=== PATIENT | female | born 1935 | race Caucasian/White ===

== ENCOUNTER → 2016-10-26 | Outpatient (CLI) | payer MEDICARE, BC ==
--- NOTE | 2016-10-26 13:54 | MM ---
Reason for exam: clinical finding. Last mammogram was performed 1 year ago. History: Patient is postmenopausal. Cyst aspiration of the right breast, 1966. Excisional biopsy of the right breast. Took estrogen for 5 months beginning at age 70. Physical Findings: Nurse did not find any significant physical abnormalities on exam. MG Diagnostic Mammo w CAD NICKIE Bilateral CC and MLO view(s) were taken. Prior study comparison: October 21, 2015, bilateral MG 3d screening mammo w/cad. September 17, 2014, bilateral MG screening mammo w CAD. There are scattered fibroglandular densities. There is chronic nodularity in the left breast. No significant new findings when compared with previous films. These results were verbally communicated with the patient and result sheet given to the patient on 10/26/16. ASSESSMENT: Benign, BI-RAD 2 RECOMMENDATION: Routine screening mammogram of both breasts in 1 year. Manage patient on a clinical basis.
--- NOTE | 2016-10-26 14:32 | US ---
EXAMINATION TYPE: US thyroid st tissue head/neck DATE OF EXAM: 10/26/2016 COMPARISON: 09/10/2012 CLINICAL HISTORY: E01.0 IODINE DEFICIENCY, E01.0 GOITER. f/u exam , on Synthroid for years GLAND SIZE: Right Lobe: 3.0 x 0.9 x 1.0 cm Overall Parenchyma: homogenous Left Lobe: 3.0 x 0.9 x 1.5 cm Overall Parenchyma: homogeneous Isthmus Thickness: 0.3 cm NODULES RIGHT: # of nodules measured on right: 0 LEFT: # of nodules measured on left: 1 1. 0.3 X 0.3 x 0.3 cm mixed cystic nodule at the mid pole with well-defined margins. This nodule is wider than tall and shows no intranodular vascularity. Prior size: 0.6 x 0.6 x 0.6 cm ISTHMUS: # of nodules measured in the isthmus: 0 Bilateral neck scanned, no evidence of lymphadenopathy. IMPRESSION: Subcentimeter nonspecific left thyroid nodule is smaller in size when compared to the prior study.
== END | disposition home or self-care (01) ==
LOC: RADMAMWWP 12:57
PROVIDERS: ATTEND Internal Medicine
DX: N60.09 Solitary cyst of unspecified breast (principal); E04.1 Nontoxic single thyroid nodule
CPT/HCPCS: 76536; G0204

== ENCOUNTER → 2017-08-01 | Outpatient (CLI) | payer MEDICARE, BC ==
--- NOTE | 2017-08-01 12:43 | XR ---
EXAMINATION TYPE: XR chest 2V DATE OF EXAM: 08/01/2017 COMPARISON: 11/08/2009 HISTORY: Chest pain TECHNIQUE: Frontal and lateral views of the chest are obtained. FINDINGS: There is no focal air space opacity, pleural effusion, or pneumothorax seen. The cardiac silhouette size is within normal limits. The osseous structures are intact. Cholecystectomy clips a re noted within the right upper quadrant. Mild multilevel degenerative changes of the thoracic spine are noted. IMPRESSION: No acute cardiopulmonary process.
== END | disposition home or self-care (01) ==
LOC: RADXRMAIN 11:45
PROVIDERS: ATTEND Family Medicine
DX: R07.9 Chest pain, unspecified (principal)
CPT/HCPCS: 71046

== ENCOUNTER → 2018-02-23 | Outpatient (CLI) | payer MEDICARE, BC ==
--- NOTE | 2018-02-26 10:10 | USB ---
Reason for exam: clinical finding. History: Patient is postmenopausal. Cyst aspiration of the right breast, 1966. Excisional biopsy of the right breast. Took estrogen for 5 months beginning at age 70. Indicated problem(s): pain in the right breast. Physical Findings: Nurse did not find any significant physical abnormalities on exam. US Breast RT Right complete breast ultrasound includes all four quadrants, the retroareolar region and axilla. Finding demonstrates duct ectasia at the posterior nipple. These results were verbally communicated with the patient and result sheet given to the patient on 02/23/18. ASSESSMENT: Benign, BI-RAD 2 RECOMMENDATION: Routine screening mammogram of both breasts. Manage patient on a clinical basis. Patient is due now for routine screening mammogram.
== END | disposition home or self-care (01) ==
LOC: RADUSWWP 14:38
PROVIDERS: ATTEND Family Medicine
DX: N64.4 Mastodynia (principal)

== ENCOUNTER 2019-04-17 07:50 | Day surgery (SDC) | payer MEDICARE, BC ==
[2019-04-16 09:41] VITALS: BMI 30.2
[2019-04-17 08:32] VITALS: RESP 18; TEMP 98
[2019-04-17] MEDS: LACTATED RINGERS 1,000 ML IV SCH ×2 (08:32→08:45)
[2019-04-17 08:35] LABS: Glucose,Whole Blood 111 mg/dL (75-99)
[2019-04-17] MEDS ORDERED: PROPOFOL 10 MG/ML 20 ML VIAL IV ONE (08:46)
--- NOTE | 2019-04-17 09:11 | P.PCN ---
Date of Procedure: 04/17/19 Procedure(s) Performed: BRIEF HISTORY: Patient is a 84-year-old pleasant 8 female scheduled for an elective colonoscopy as a part of evaluation of positive cologuard. PROCEDURE PERFORMED: Colonoscopy and snare polypectomy. PREOPERATIVE DIAGNOSIS: Positive cologuard. IV sedation per Anesthesia. PROCEDURE: After informed consent was obtained, the patient, was brought into the endoscopy unit. IV sedation was administered by Anesthesia under continuous monitoring. Digital rectal examination was normal. Initially the Olympus CF-160 flexible video colonoscope was then inserted in the rectum, gradually advanced into the cecum without any difficulty. Careful examination was performed as the scope was gradually being withdrawn. Ileocecal valve and the appendiceal orifice were visualized and appeared normal. Prep was excellent. In the base of the cecum there was a 5 mm sessile polyp removed by snare polypectomy. In the ascending colon there was a 3 mm and 5 mm sessile polyps removed by snare polypectomy. In the hepatic flexure there was a 1 cm polyp removed by snare polypectomy. In the transverse colon there was a 2 mm and 3 mm sessile polyps removed by snare polypectomy. Rest of the mucosa of descending colon, sigmoid colon, and rectum appeared normal. Retroflexion was performed in the rectum and no lesions were seen. The patient tolerated the procedure well. IMPRESSION: 5 mm cecal polyp status post polypectomy 3 mm and 5 mm ascending colon polyp status post polypectomy 1 cm hepatic flexure polyp serous posterior polypectomy 2 mm and 3 mm transverse colon polyp status post polypectomy Scattered sigmoidal diverticulosis RECOMMENDATIONS: Findings of this examination were discussed with the patient as well as her family. She was advised to follow with the biopsy results.
[2019-04-17 09:35] VITALS: BP 135/65; PULSE 49
== END 2019-04-17 09:56 | disposition home or self-care (01) ==
LOC: ORWHC2ENDO 07:50
PROVIDERS: ATTEND Internal Medicine Gastroenterology
DX: D12.0 Benign neoplasm of cecum (principal); D12.2 Benign neoplasm of ascending colon; D12.3 Benign neoplasm of transverse colon; Z86.010 Personal history of colon polyps; Z79.82 Long term (current) use of aspirin; Z79.899 Other long term (current) drug therapy; E11.9 Type 2 diabetes mellitus without complications; E07.9 Disorder of thyroid, unspecified; I10 Essential (primary) hypertension; E78.5 Hyperlipidemia, unspecified; Z79.890 Hormone replacement therapy
CPT/HCPCS: 88305; 45385; J2704

== ENCOUNTER 2019-11-25 13:49 | Observation (INO) | payer MEDICARE, BC ==
[2019-11-25] MEDS ORDERED: ASPIRIN 81 MG PO STA (14:15)
[2019-11-25] MEDS ORDERED: NITROGLYCERIN OINT 1 INCH/GM PACKET TOPICAL STA (14:15)
--- NOTE | 2019-11-25 14:18 | ED ---
General Adult HPI - General Chief complaint: Chest Pain Stated complaint: Chest Pain Time Seen by Provider: 11/25/19 13:57 Source: patient, family, RN notes reviewed Mode of arrival: wheelchair Limitations: no limitations - History of Present Illness Initial comments: Patient is a pleasant 84-year-old female presenting to the emergency Department with complaints of chest discomfort. Onset of symptoms was this morning. Patient has sharp discomfort left chest. Symptoms are not positional. No worsening symptoms with breaths. No cough. No dyspnea. Symptoms are waxing and waning. Patient took aspirin and symptoms are starting to improve however still occurring. Symptoms usually are short lasting. Discomfort gets as severe as 5/10 now. Previously discomfort was up to 8/10. No nausea or diaphoresis. No radiation. - Related Data Home Medications Medication Instructions Recorded Confirmed Aspirin 81 mg PO DAILY 04/16/19 04/16/19 Atorvastatin [Lipitor] 20 mg PO HS 04/16/19 04/16/19 Isosorbide Mononitrate [Isosorbide 30 mg PO DAILY 04/16/19 04/16/19 Mononitrate ER] Levothyroxine Sodium [Synthroid] 75 mcg PO DAILY 04/16/19 04/16/19 amLODIPine BES/OLMESARTAN MED 1 each PO DAILY 04/16/19 04/16/19 [John 10-40 MG] atenoloL [Tenormin] 25 mg PO BID 04/16/19 04/16/19 Allergies Allergy/AdvReac Type Severity Reaction Status Date / Time No Known Allergies Allergy Verified 11/25/19 13:54 Review of Systems ROS Statement: Those systems with pertinent positive or pertinent negative responses have been documented in the HPI. ROS Other: All systems not noted in ROS Statement are negative. Constitutional: Denies: fever Eyes: Denies: eye pain ENT: Denies: ear pain Respiratory: Denies: cough, dyspnea Cardiovascular: Reports: as per HPI, chest pain Endocrine: Denies: fatigue Gastrointestinal: Denies: abdominal pain, nausea, vomiting Genitourinary: Denies: dysuria Musculoskeletal: Denies: back pain Skin: Denies: rash Neurological: Denies: weakness Past Medical History Past Medical History: Diabetes Mellitus, Hyperlipidemia, Hypertension, Thyroid Disorder Additional Past Medical History / Comment(s): hx. "leaky valve", used to take metformin, recent loose stools & "no control" History of Any Multi-Drug Resistant Organisms: None Reported Past Surgical History: Back Surgery, Bladder Surgery, Breast Surgery, Cholecystectomy, Hysterectomy Additional Past Surgical History / Comment(s): left carotid endarterectomy, benign breast cyst removed, bladder suspension Past Anesthesia/Blood Transfusion Reactions: No Reported Reaction Past Alcohol Use History: None Reported Past Drug Use History: None Reported General Exam Limitations: no limitations General appearance: alert, in no apparent distress Head exam: Present: normocephalic Eye exam: Present: normal appearance Neck exam: Present: normal inspection Respiratory exam: Present: normal lung sounds bilaterally. Absent: chest wall tenderness Cardiovascular Exam: Present: bradycardia, normal heart sounds Expanded Peripheral pulses: 2+: Radial (R), Radial (L), Posterior Tibialis (R), Posterior Tibialis (L), Dorsalis Pedis (R), Dorsalis Pedis (L) GI/Abdominal exam: Present: soft. Absent: tenderness Extremities exam: Present: normal inspection. Absent: pedal edema, calf tenderness Neurological exam: Present: alert Psychiatric exam: Present: normal affect, normal mood Skin exam: Present: normal color Course Vital Signs 11/25/19 11/25/19 13:52 15:48 Temperature 98.0 F Pulse Rate 51 L 48 L Respiratory 18 16 Rate Blood Pressure 156/75 136/69 O2 Sat by Pulse 97 96 Oximetry EKG Findings - EKG Comments: EKG Findings:: Sinus bradycardia 48. First-degree heart block with a NM of 208. QRS 106. QT 476. QTc 425. Normal axis. LVH. No acute ST change. Medical Decision Making - Medical Decision Making Patient reevaluated and resting comfortably in bed. Patient states she is still having symptoms however mild at this time. Patient and family updated on results and plan. Case was discussed in detail with Dr. Fair, who will admit his patient. - Lab Data Result diagrams: 11/25/19 14:20 11/25/19 14:20 Lab Results 11/25/19 11/25/19 11/25/19 Range/Units 14:20 14:20 14:20 WBC 8.2 (3.8-10.6) k/uL RBC 4.42 (3.80-5.40) m/uL Hgb 13.8 (11.4-16.0) gm/dL Hct 40.9 (34.0-46.0) % MCV 92.7 (80.0-100.0) fL MCH 31.3 (25.0-35.0) pg MCHC 33.8 (31.0-37.0) g/dL RDW 13.1 (11.5-15.5) % Plt Count 179 (150-450) k/uL Neutrophils % 54 % Lymphocytes % 35 % Monocytes % 6 % Eosinophils % 2 % Basophils % 1 % Neutrophils # 4.4 (1.3-7.7) k/uL Lymphocytes # 2.9 (1.0-4.8) k/uL Monocytes # 0.5 (0-1.0) k/uL Eosinophils # 0.2 (0-0.7) k/uL Basophils # 0.1 (0-0.2) k/uL PT 10.3 (9.0-12.0) sec INR 1.0 (<1.2) APTT 24.0 (22.0-30.0) sec D-Dimer 0.43 (<0.60) mg/L FEU Sodium 135 L (137-145) mmol/L Potassium 4.4 (3.5-5.1) mmol/L Chloride 102 (98-107) mmol/L Carbon Dioxide 25 (22-30) mmol/L Anion Gap 8 mmol/L BUN 18 H (7-17) mg/dL Creatinine 0.82 (0.52-1.04) mg/dL Est GFR (CKD-EPI)AfAm 76 (>60 ml/min/1.73 sqM) Est GFR (CKD-EPI)NonAf 66 (>60 ml/min/1.73 sqM) Glucose 95 (74-99) mg/dL Calcium 9.5 (8.4-10.2) mg/dL Magnesium 2.3 (1.6-2.3) mg/dL Total Bilirubin 0.7 (0.2-1.3) mg/dL AST 31 (14-36) U/L ALT 21 (4-34) U/L Alkaline Phosphatase 80 (38-126) U/L Troponin I (0.000-0.034) ng/mL Total Protein 7.6 (6.3-8.2) g/dL Albumin 4.3 (3.5-5.0) g/dL 11/25/19 Range/Units 14:20 WBC (3.8-10.6) k/uL RBC (3.80-5.40) m/uL Hgb (11.4-16.0) gm/dL Hct (34.0-46.0) % MCV (80.0-100.0) fL MCH (25.0-35.0) pg MCHC (31.0-37.0) g/dL RDW (11.5-15.5) % Plt Count (150-450) k/uL Neutrophils % % Lymphocytes % % Monocytes % % Eosinophils % % Basophils % % Neutrophils # (1.3-7.7) k/uL Lymphocytes # (1.0-4.8) k/uL Monocytes # (0-1.0) k/uL Eosinophils # (0-0.7) k/uL Basophils # (0-0.2) k/uL PT (9.0-12.0) sec INR (<1.2) APTT (22.0-30.0) sec D-Dimer (<0.60) mg/L FEU Sodium (137-145) mmol/L Potassium (3.5-5.1) mmol/L Chloride (98-107) mmol/L Carbon Dioxide (22-30) mmol/L Anion Gap mmol/L BUN (7-17) mg/dL Creatinine (0.52-1.04) mg/dL Est GFR (CKD-EPI)AfAm (>60 ml/min/1.73 sqM) Est GFR (CKD-EPI)NonAf (>60 ml/min/1.73 sqM) Glucose (74-99) mg/dL Calcium (8.4-10.2) mg/dL Magnesium (1.6-2.3) mg/dL Total Bilirubin (0.2-1.3) mg/dL AST (14-36) U/L ALT (4-34) U/L Alkaline Phosphatase (38-126) U/L Troponin I <0.012 (0.000-0.034) ng/mL Total Protein (6.3-8.2) g/dL Albumin (3.5-5.0) g/dL - Radiology Data Radiology results: image reviewed (Chest x-ray: Correlate for atelectasis.) Disposition Clinical Impression: Chest pain Disposition: ADMITTED IP TO THIS HOSP Is patient prescribed a controlled substance at d/c from ED?: No Referrals: Zion Fair MD [Primary Care Provider] - 1-2 days Decision Time: 16:47
[2019-11-25 14:41] LABS: Basophils # (A) 0.1 k/uL (0-0.2); Basophils % (A) 1 %; Eosinophils # (A) 0.2 k/uL (0-0.7); Eosinophils % (A) 2 %; HCT 40.9 % (34.0-46.0); HGB 13.8 gm/dL (11.4-16.0); Lymphocytes # (A) 2.9 k/uL (1.0-4.8); Lymphocytes % (A) 35 %; MCH 31.3 pg (25.0-35.0); MCHC 33.8 g/dL (31.0-37.0); MCV 92.7 fL (80.0-100.0); Mean Platelet Volume 7.6; Monocytes # (A) 0.5 k/uL (0-1.0); Monocytes % (A) 6 %; Neutrophils # (A) 4.4 k/uL (1.3-7.7); Neutrophils % (A) 54 %; Platelet Count 179 k/uL (150-450); RBC 4.42 m/uL (3.80-5.40); RDW 13.1 % (11.5-15.5); WBC 8.2 k/uL (3.8-10.6)
[2019-11-25 14:43] LABS: Albumin 4.3 g/dL (3.5-5.0); Calcium 9.5 mg/dL (8.4-10.2); Magnesium 2.3 mg/dL (1.6-2.3); Potassium 4.4 mmol/L (3.5-5.1); Total Bilirubin 0.7 mg/dL (0.2-1.3); Total Protein 7.6 g/dL (6.3-8.2)
[2019-11-25 14:48] LABS: D-Dimer 0.43 mg/L FEU (<0.60); Prothrombin Time 10.3 sec (9.0-12.0)
--- NOTE | 2019-11-25 15:29 | XR ---
EXAMINATION TYPE: XR chest 2V DATE OF EXAM: 11/25/2019 COMPARISON: 08/01/2017 INDICATION: Chest pain TECHNIQUE: Frontal and lateral views of the chest are obtained. FINDINGS: The heart size is normal. The pulmonary vasculature is normal. Mild increased lung markings at the bilateral lung bases more so at the left. Correlate for subsegmen bruce atelectasis.. IMPRESSION: 1. Bibasilar infiltrates greater on the left. Correlate for subsegmental atelectasis.
[2019-11-25] MEDS ORDERED: NITROGLYCERIN SL TABS 0.4 MG TAB SUBLINGUAL PRN (16:47)
--- NOTE | 2019-11-25 18:48 | CT ---
EXAMINATION TYPE: CT chest wo con DATE OF EXAM: 11/25/2019 COMPARISON: None HISTORY: Left sided chest pain. CT DLP: 280.7 mGycm Automated exposure control for dose reduction was used. Multiple axial sections were obtained from the thoracic inlet to the diaphragm without contrast. There is 2 cm nodular infiltrate in the lingula left upper lobe. There is no pleural effusion. Heart appears slightly enlarged. There is atherosclerotic vascular calcification. There is no pericardial effusion. There is no mediastinal adenopathy. There are no hilar masses. Ther e is coronary artery calcification. There is no pleural effusion. Thoracic spine is intact. There is no compression fracture. Sternum is intact. There is some arthriti c change in the shoulder joints. The ribs appear intact. IMPRESSION: Rounded nodular lingula infiltrate. Mild scarring and atelectasis in the lingula left upper lobe. Nodular density is nonspecific. Follow- up is recommended to show clearing or long-term stability. Mild cardiomegaly. Atherosclerotic vascular disease.
[2019-11-25] MEDS ORDERED: ATORVASTATIN 20 MG TAB PO SCH (21:00)
[2019-11-25] MEDS: atenoloL 25 MG TAB PO SCH (21:30)
[2019-11-25] MEDS ORDERED: AZITHROMYCIN 500 MG in SODIUM CHLORIDE 0.9% 250 ML IVPB SCH (23:15)
--- NOTE | 2019-11-25 23:57 | HP ---
HISTORY AND PHYSICAL An 84-year-old white female presents with chest discomfort, onset was this morning, sharp discomfort left chest, composition not worse with breathing. No cough. No dyspnea. Since waxing and waning. Took aspirin, started to improve. Troponins are negative. CAT scan shows left upper lobe nodular infiltrate, which is around the area where her pain is. Pain was 8/10, not radiating. No nausea or vomiting. HOME MEDICINES: 1. Aspirin 81 daily. 2. Lipitor 20 daily. 3. Imdur 30 mg daily. 4. Levothyroxine 75 mcg daily. 5. Amlodipine/Olmesartan 1 tab daily. 6. Tenormin 25 b.i.d. ALLERGIES: No known drug allergies. REVIEW OF SYSTEMS: Fourteen-point review of systems negative except for mentioned in HPI. PAST MEDICAL HISTORY: Diabetes mellitus, dyslipidemia, hypertension, hypothyroidism. SURGICAL HISTORY: Back surgery, bladder surgery, breast surgery, cholecystectomy, hysterectomy, left carotid endarterectomy, benign breast cyst, bladder suspension. PHYSICAL EXAMINATION: She appears stable medically. Blood pressure 136 to 156 over 69 to 75, O2 of 96 to 97, respiratory rate 16 to 18, pulse 48 to 51, temp 98. CARDIOVASCULAR: S1, S2. LUNGS: Essentially normal. She has some mild chest wall tenderness left upper anterior chest. HEAD: Normocephalic, atraumatic. Pupils equal, round, reactive. GI: Soft. EXTREMITIES: No cyanosis, clubbing, edema. LABS: Labs are reviewed. CAT scan is reviewed with left upper lobe lingular infiltrate. Start her on Rocephin and azithromycin. A pulmonary consult. Treat for community-acquired pneumonia, atypical chest pain. Doubt cardiac in nature is more of a pleuritic type chest pain, symptoms worse with palpation. Continue to treat for pneumonia. Please see further orders. Pulmonary consult. MMODL / IJN: [id number] /
[2019-11-26] MEDS: NITROGLYCERIN OINT 1 INCH/GM PACKET TOPICAL SCH ×3 (00:17→06:01)
[2019-11-26 03:08] VITALS: PULSE 55
[2019-11-26] MEDS ORDERED: LEVOTHYROXINE 75 MCG TAB PO SCH (06:30)
[2019-11-26 07:49] LABS: Cholesterol 149 mg/dL (<200); HDL Cholesterol 44 mg/dL (40-60); LDL Cholesterol,Calculated 71 mg/dL (0-99); Triglycerides 172 mg/dL (<150)
[2019-11-26 08:11] VITALS: BP 152/74; RESP 14; TEMP 98
[2019-11-26] MEDS ORDERED: PANTOPRAZOLE 40 MG TABLET PO STA (08:42)
[2019-11-26] MEDS: atenoloL 25 MG TAB PO SCH (08:43)
[2019-11-26] MEDS ORDERED: CHOLECALCIFEROL 1,000 UNIT TAB PO SCH (09:00)
[2019-11-26] MEDS ORDERED: amLODIPine 10 MG TAB PO SCH (09:00)
[2019-11-26] MEDS ORDERED: ASPIRIN 81 MG PO SCH (09:00)
[2019-11-26] MEDS ORDERED: ASPIRIN 325 MG TAB PO SCH (09:00)
[2019-11-26] MEDS ORDERED: OLMESARTAN MED PO SCH (09:00)
[2019-11-26] MEDS ORDERED: AMLODIPINE BES PO SCH (09:00)
[2019-11-26] MEDS ORDERED: LOSARTAN 50 MG TAB PO SCH (09:00)
[2019-11-26] MEDS ORDERED: ISOSORBIDE MONONITRATE ER 30 MG TAB.ER.24H PO SCH (09:00)
--- NOTE | 2019-11-26 16:01 | CONS ---
CONSULTATION This patient is an 84-year-old lady with history of noncritical CAD, type 2 diabetes, hypertension and hyperlipidemia whose last stress test 2 years ago was unremarkable. Cardiac cath revealed noncritical CAD in 2009. She came into the hospital with episode of discomfort in the chest, sharp in nature, that felt like a dull ache. This occurred while she was at rest and was not doing anything specifically. Pain has resolved completely. Quality of pain seemed very atypical. Three troponins are normal. EKGs do not reveal any acute changes. She has type 2 diabetes which was diet-controlled. She has hypertension and hyperlipidemia, both of which are under good control. She is resting comfortably without symptoms. PAST MEDICAL HISTORY: 1. Hypertension. 2. Hyperlipidemia. 3. Diet-controlled diabetes mellitus. 4. Noncritical coronary artery disease. MEDICATIONS: Medications at home include aspirin 81 mg daily, atorvastatin 20 mg daily, John/Norvasc combination 10/40, Imdur 30 mg daily, vitamin supplements, Synthroid 75 mcg daily. PHYSICAL EXAMINATION: On examination, blood pressure was 150/70, pulse rate was about 58 per minute, regular. HEENT: Unremarkable. Fundus was not examined by me. NECK: Neck is supple. No JVD. I do not hear a carotid bruit. Heart exam reveals S1, S2 heard normally. No significant murmurs. Lungs are clear. Abdomen is soft, nontender. Lower extremities reveal normal pulses. No edema. Central nervous system is normal. EKG revealed sinus mechanism with nonspecific ST abnormality, sinus bradycardia. IMPRESSION: 1. Atypical chest pain. 2. Hypertension. 3. Hyperlipidemia. 4. History of non-critical coronary artery disease in the past. RECOMMENDATIONS: I am recommending that we increase activity, and if she has no further symptoms she can be discharged and I will see her in the office in a week and consider outpatient stress testing. Discussed my thoughts in detail with the patient and also spoke to her daughter. Thank you very much for the consult. MMNINAL / NASHN: [id number] /
== END 2019-11-26 12:21 | disposition home or self-care (01) ==
LOC: EC 13:49 → 3NCARDOBS 16:47
PROVIDERS: ADMIT Family Medicine; ATTEND Family Medicine
DX: J18.9 Pneumonia, unspecified organism (principal); R07.89 Other chest pain; E11.9 Type 2 diabetes mellitus without complications; E78.5 Hyperlipidemia, unspecified; I11.9 Hypertensive heart disease without heart failure; E07.9 Disorder of thyroid, unspecified; R00.1 Bradycardia, unspecified; I44.0 Atrioventricular block, first degree; I25.10 Atherosclerotic heart disease of native coronary artery without angina pectoris; Z03.818 Encounter for observation for suspected exposure to other biological agents ruled out; Z79.82 Long term (current) use of aspirin; Z79.899 Other long term (current) drug therapy; Z79.890 Hormone replacement therapy; Z86.79 Personal history of other diseases of the circulatory system; Z87.19 Personal history of other diseases of the digestive system; Z98.890 Other specified postprocedural states; Z90.49 Acquired absence of other specified parts of digestive tract; Z90.710 Acquired absence of both cervix and uterus; Z87.448 Personal history of other diseases of urinary system
CPT/HCPCS: 93005 ×2; 96365; 96367; 99285; 36415; 85379; 80061; 80053; 83735; 84484; 85025; 85610; 85730; 71046; 71250; G0378 ×2; U0003; J0456; J0696

== ENCOUNTER → 2019-12-06 | Outpatient (CLI) | payer MEDICARE, BC ==
--- NOTE | 2019-12-06 13:40 | CT ---
EXAMINATION TYPE: CT chest wo con DATE OF EXAM: 12/06/2019 COMPARISON: Chest CT November 24 HISTORY: SOB, left side chest pain CT DLP: 557 mGycm. Automated Exposure Control for Dose Reduction was Utilized. TECHNIQUE: CT scan of the thorax is performed without IV contrast. FINDINGS: LUNGS: Stable 1.4 x 1.2 cm lingular nodule axial image 38. Mild to moderate bibasilar linear scarring and/or atelectasis. Stable partially calcified 6 x 4 mm superior segment right lower lobe nodule axi al image 32. Smaller micronodules in the upper lung measuring under 3 mm. No new suspicious focal con solidation. There is no pleural effusion or pneumothorax seen bilaterally. The tracheobronchial tree is patent. MEDIASTINUM: Lack of IV contrast is noted to limit evaluation for mediastinal and especially hilar ad enopathy. There are no definitive greater than 1 cm hilar or mediastinal lymph nodes. No cardiomega ly or pericardial effusion is seen. Moderate to severe Coronary artery calcification again seen. OTHER: New Small-sized hiatal hernia. Cholecystectomy clips are redemonstrated. Slight scoliotic curv ature with moderate multilevel spurring in the spine. IMPRESSION: Chronic changes without acute pulmonary process. Stable suspicious 1.4 cm lingular nodule . Neoplasm not excluded. Advise PET CT follow-up or imaging guided sampling.
== END | disposition home or self-care (01) ==
LOC: RADCTMAIN 12:57
PROVIDERS: ATTEND Family Medicine
DX: R06.02 Shortness of breath (principal)
CPT/HCPCS: 71250

== ENCOUNTER → 2019-12-20 | Outpatient (CLI) | payer MEDICARE, BC ==
--- NOTE | 2019-12-22 13:09 | PE ---
EXAMINATION TYPE: PET CT fusion skull to thigh DATE OF EXAM: 12/20/2019 COMPARISON: CT chest 12/06/2019 Prior PET/CT: None HISTORY: Lung cancer , solitary pulmonary nodule. TECHNIQUE: Following the intravenous administration of 11.39 mCi of F-18 FDG, whole body images are performed from the skull base to the midthigh. Images are reviewed on the computer in the coronal, a xial, and sagittal planes. Reconstructed rotating images are created on independent workstation and reviewed on the computer. A localization and attenuation correction CT is performed in conjunction with the PET scan. DLP: 324.51 mGycm SCAN: Initial Blood glucose: 111 mg/dL Average Mediastinum SUV: 1.91 Average Liver SUV: 2.6 FINDINGS: NECK: Note is made of the left antecubital injection site. There is some mild uptake within the right tonsillar pillar with an SUV value of 3.54. PET image 34. Some mild increased uptake is along the posterior portion of the tongue greater on the right with an SUV value of 3.18. PET image 38. Intense uptake is within the inferior posterior tongue within SUV value of 4.54 just above the vallecula. Direct visualization is recommended. These areas are difficul t to evaluate given the beam hardening artifact through this region. There is increased uptake surrounding the right shoulder. Correlate for frozen shoulder, fibrosis. THORAX: There is a punctate area of increased uptake within the small pretracheal lymph node. PET belgica ge 76, SUV 2.57. There is increased uptake within a subcarinal lymph node with an SUV value of 3.98 s uspicious for metastatic disease. PET image 82. There is a small nodule within the atrial fissure on the right midlung. PET image 90. This has an SUV value of 0.47 and may be a small lymph node or granuloma. A lingular mass remains present, head image 98. SUV value 1.46. This is intermediate for neoplasm and inflammatory change is also within the differential at this level. ABDOMEN: No abnormal uptake PELVIS: No abnormal uptake OSSEOUS STRUCTURES: No abnormal uptake LOCALIZATION CT: The nodule within the right mid lung measures 0.5 cm. A lingular nodule measures 1.3 cm. Subcarinal lymph node with hyperintensity measures 0.8 cm. The pretracheal possibly right peribr onchial lymph node with mild increased uptake measures 0.6 cm. Coronary artery calcification is noted . COMPARISON: Lung findings appear stable over the interval. IMPRESSION: 1. There is a suspicious level of uptake within the posterior tongue Vallecula with some increase uptake also present within the right tonsillar pillar. Recommend direct visualization for additional evaluation. 2. Suspicious uptake within the subcarinal node. Some more intermediate elevated uptake is within a p retracheal lymph node. 3. No suspicious uptake within the identified lung nodules.
== END | disposition home or self-care (01) ==
LOC: RADPETMAIN 11:13
PROVIDERS: ATTEND Family Medicine
DX: R91.8 Other nonspecific abnormal finding of lung field (principal); R93.89 Abnormal findings on diagnostic imaging of other specified body structures
CPT/HCPCS: 78815; A9552

== ENCOUNTER 2020-01-13 11:30 | Day surgery (SDC) | payer MEDICARE, BC ==
[2020-01-09 09:07] VITALS: BMI 29.2
--- NOTE | 2020-01-13 10:20 | HP ---
HISTORY AND PHYSICAL CHIEF COMPLAINT: Asymmetry/lesion of the base of tongue. HISTORY OF PRESENT ILLNESS: The patient is a very pleasant 84-year-old female who was referred to my office for evaluation of an abnormality seen on a PET scan recently. The patient has never used any tobacco products. She was originally seen in the emergency room because of chest pain and at that time. At that time, a PET scan had been obtained and one of the findings was some significant and suspicious asymmetry of the patient's base of tongue. She denies any recent sore throats, lung infections, or cough. She also denies any referred otalgia. At the time that she was seen in my office, clinical examination including indirect laryngoscopy revealed no obvious suspicious lesions, but there was significant asymmetry of the right base of tongue with the right side being greater than the left. It was recommended that the patient undergo a suspension microlaryngoscopy with possible biopsy of the base of tongue under general anesthesia. PAST MEDICAL HISTORY: Past medical history reveals that she has NO ALLERGIES TO MEDICATIONS. PREVIOUS SURGERIES: Include hysterectomy, pelvic lift/bladder suspension, lower back surgery, laparotomy, laparoscopic surgery, bilateral knee replacements and bilateral and carotid artery endarterectomy MEDICATIONS: Current medications include 1 baby aspirin, Synthroid, Amlodipine, Atenolol, atorvastatin. Other medications include olmesartan isorbide, and John. REVIEW OF SYSTEMS: Reveals cardiovascular system is positive for hypertension and ASHD. Metabolic/Endocrine is positive for hypercholesterolemia and hypothyroidism. The remainder of the review of systems is unremarkable. PHYSICAL EXAMINATION: The patient is an 84-year-old female who was alert, cooperative and well-oriented to time and place. HEENT examination patient is normocephalic. Tympanic membranes are normal. Middle ear space is free of any fluid or infection. Pupils equal, round, react to light and accommodation. Extraocular movements within normal limits. Intranasal examination reveals moderate septal deviation with compensatory hypertrophy of the inferior turbinates and a moderate amount of mucus on the mucous membranes and draining down the posterior pharynx. Examination of the oropharynx and indirect laryngoscopy is as noted above in history of the present illness and will not be repeated. Cranial nerves 2 through 12 and remainder of the head and neck exam are within normal limits. Chest cardiovascular: Both lung navarro are clear to percussion and auscultation patient max patient is in regular sinus rhythm. S1 and S2 are present without evidence of any murmurs S3s or S4. Peripheral pulses are bilaterally symmetrical and within normal limits. Abdomen there is no evidence any masses megaly or tenderness. Abdomen is soft. Skin is unremarkable. Musculoskeletal neurological in all within normal limits. Pelvic rectal exam in that should be printed pelvic rectal exam is deferred at this time because the patient has this done on a regular basis at her family physician's office. The remainder of physical exam is unremarkable. Impression is asymmetry/lesion of the base of tongue. PLAN: The patient is scheduled undergo a suspension microlaryngoscopy, with possible biopsy of base of tongue under general anesthesia. Attention RNs in the pre-surgical area: I have not ordered any pre-surgical prophylactic antibiotics for this patient. If the pharmacy department sends any pre- surgical prophylactic antibiotics to the pre-surgical area for this patient, that order should be cancelled and the medication should be returned to the pharmacy department. Please make sure that the patient's account is account is credited appropriately I have discussed the risks, benefits and alternative therapies for the above-mentioned procedure and for both sedation/analgesia as well as necessary blood product administration, if indicated, as they pertain to this patient. The patient has indicated his or her understanding and acceptance of the risks and procedures discussed. MMODL / IJN: [id number] /
[~2020-01-13 11:30] MED LIST: HYDROmorphone 0.5 MG/0.5 ML SYRINGE IVP PRN; Pre Op ABX Message 1 EACH MISC MISCELLANE ONE
[2020-01-13 11:59] LABS: Glucose,Whole Blood 97 mg/dL (75-99)
[2020-01-13 12:02] VITALS: RESP 16
[2020-01-13] MEDS ORDERED: LIDOCAINE 1% (10MG/ML) FOR IV START SQ ONE (12:02)
[2020-01-13] MEDS: LACTATED RINGERS 1,000 ML IV SCH ×2 (12:03→12:41)
[2020-01-13] MEDS ORDERED: ONDANSETRON 4 MG/2 ML VIAL ONE (12:20)
[2020-01-13] MEDS ORDERED: ONDANSETRON 4 MG/2 ML VIAL IVP ONE (12:23)
[2020-01-13] MEDS ORDERED: DEXAMETHASONE SOD PHOSPHATE 10 MG/ML 1 ML VIAL IV ONE (12:24)
[2020-01-13] MEDS ORDERED: ePHEDrine SULFATE/0.9% NACL/PF 50 MG/5 ML SYRINGE IV ONE (12:41)
[2020-01-13] MEDS ORDERED: PROPOFOL 10 MG/ML 20 ML VIAL IV ONE (12:41)
[2020-01-13] MEDS ORDERED: SUCCINYLCHOLINE CHLORIDE 100 MG/5 ML SYR IV ONE (12:41)
[2020-01-13] MEDS ORDERED: GLYCOPYRROLATE 0.2 MG/ML 2 ML VIAL ONE (12:41)
[2020-01-13] MEDS ORDERED: DEXAMETHASONE SOD PHOSPHATE 10 MG/ML 1 ML VIAL ONE (12:41)
[2020-01-13] MEDS ORDERED: fentaNYL (PF) 50 MCG/ML 2 ML AMP ONE (12:41)
[2020-01-13] MEDS ORDERED: LIDOCAINE 1% INJ 10MG/ML (20 ML MDV) ONE (12:41)
[2020-01-13 13:37] VITALS: TEMP 97.1
[2020-01-13 14:38] VITALS: BP 124/68; PULSE 59
[2020-01-13 14:43] LABS: Glucose,Whole Blood 124 mg/dL (75-99)
--- NOTE | 2020-01-13 23:26 | OP ---
OPERATIVE REPORT DATE OF SURGERY: 01/13/2020 PREOPERATIVE DIAGNOSIS: Asymmetry of the base of tongue. POSTOPERATIVE DIAGNOSIS: Asymmetry of the base of tongue, final pathology pending. ANESTHESIA: General. OPERATIVE PROCEDURE: Suspension microlaryngoscopy with multiple blind biopsies of the right base of tongue. OPERATING SURGEON: Dr. Villareal. COMPLICATIONS: None. OPERATIVE PROCEDURE: The patient was placed on the operating table in supine position. After uneventful induction endotracheal intubation, satisfactory general anesthesia was obtained. Next, the patient was draped in usual customary fashion. Following this, using the anterior commissure laryngoscope the entire hypopharynx including the right and left piriform sinuses, vallecula, epiglottis were inspected and found to be free of any suspicious lesions. Next, the right and left base of tongue were inspected. It was noted immediately that there was some asymmetry noted between the left and right base of tongue that, that is to say the right base of tongue appeared to be much hoyos than the left side. Deep manual palpation did not reveal any discrete lesions. However, because of this asymmetry, it was decided to perform multiple biopsies. Therefore, the laryngoscope was positioned at the potential biopsy site and the Lewy apparatus was attached to the handle of the laryngoscope and the laryngoscope was suspended on the patient's chest. Next using the Zeiss operating microscope and under magnified visualization, the biopsies were performed using the up-biting microlaryngeal forceps to take several specimens of the right base of tongue. These specimens were sent in formalin for permanent sectioning. Again, no discrete suspicious lesions were noted. Next the tip of the laryngoscope was positioned at the laryngeal introitus and again the Lewy apparatus was suspended on the patient's chest. Inspection of the laryngeal apparatus including the right left true and false vocal cords, ventricle, anterior commissure, arytenoids and the postcricoid area were inspected and found to be free of any suspicious lesions. The patient was given 10 mg of Decadron intraoperatively to reduce any intraoperative edema. At this point, the procedure was terminated. There were no intraoperative complications. The patient tolerated the procedure well and was returned to the recovery room in satisfactory condition. Final pathology is pending. Estimated blood loss is less than 1 mL. MMODL / IJN: [id number] /
== END 2020-01-13 15:05 | disposition home or self-care (01) ==
LOC: OR 11:30
PROVIDERS: ATTEND Otolaryngology
DX: K14.8 Other diseases of tongue (principal); I10 Essential (primary) hypertension; E03.9 Hypothyroidism, unspecified; E78.00 Pure hypercholesterolemia, unspecified; I25.10 Atherosclerotic heart disease of native coronary artery without angina pectoris; E78.5 Hyperlipidemia, unspecified; E11.9 Type 2 diabetes mellitus without complications; M19.90 Unspecified osteoarthritis, unspecified site; K21.9 Gastro-esophageal reflux disease without esophagitis; Z90.710 Acquired absence of both cervix and uterus; Z98.890 Other specified postprocedural states; Z96.653 Presence of artificial knee joint, bilateral; Z79.82 Long term (current) use of aspirin; Z79.890 Hormone replacement therapy; Z79.899 Other long term (current) drug therapy
CPT/HCPCS: 88305; 31536; J1100; J2405; J2001; J3010; J0330; J2704

== ENCOUNTER → 2020-04-01 | Day surgery (SDC) | payer MEDICARE, BC ==
[~2020-04-01] MED LIST changes: -HYDROmorphone 0.5 MG/0.5 ML SYRINGE IVP PRN; +LIDOCAINE 1% INJ 10MG/ML (20 ML MDV) ONE; +LIDOCAINE 1% INJ 10MG/ML (20 ML MDV) SQ ONE; -Pre Op ABX Message 1 EACH MISC MISCELLANE ONE
[2020-04-01 12:46] VITALS: BP 144/65; RESP 18; TEMP 98
[2020-04-01 12:57] LABS: Basophils # (A) 0.1 k/uL (0-0.2); Basophils % (A) 1 %; Eosinophils # (A) 0.2 k/uL (0-0.7); Eosinophils % (A) 3 %; HCT 42.7 % (34.0-46.0); HGB 14.5 gm/dL (11.4-16.0); Lymphocytes # (A) 3.2 k/uL (1.0-4.8); Lymphocytes % (A) 35 %; MCH 32.1 pg (25.0-35.0); MCHC 34.1 g/dL (31.0-37.0); MCV 94.4 fL (80.0-100.0); Mean Platelet Volume 7.4; Monocytes # (A) 0.6 k/uL (0-1.0); Monocytes % (A) 6 %; Neutrophils # (A) 4.9 k/uL (1.3-7.7); Neutrophils % (A) 53 %; Platelet Count 169 k/uL (150-450); RBC 4.52 m/uL (3.80-5.40); RDW 12.8 % (11.5-15.5); WBC 9.2 k/uL (3.8-10.6)
[2020-04-01 13:11] LABS: Potassium 4.4 mmol/L (3.5-5.1)
[2020-04-01 13:54] VITALS: PULSE 50
--- NOTE | 2020-04-01 13:59 | IR ---
PICC LINE PLACEMENT: HISTORY: Infection requiring long-term antibiotic therapy PROCEDURE: Ultrasound and fluoroscopic guidance of PICC line placement. COMPLICATIONS: None ANESTHESIA: 1. 1% Lidocaine locally. FINDINGS/TECHNIQUE: The procedure was explained to the patient. The risks, complications, benefits and alternatives were discussed and any questions were answered. Informed consent was obtained. The patient was placed supine on the fluoroscopic table and prepped and draped in the usual sterile fash ion. Utilizing a 21 gauge needle and sonographic and fluoroscopic guidance, access in the left basi lic vein was achieved and there is placement of a 0.018 guidewire. The vein is patent. A 4-F sheath was placed over the guidewire. The guidewire and dilator were removed and a 4-F. PICC line was plac ed through the sheath with the tip at the level of the SVC. The sheath was removed, the catheter was flushed and sutured into position. The patient was stable throughout the procedure and remained sta ble upon discharge from the Department of Radiology. The vein puncture was patent under ultrasound. A estevez scale image was obtained to document patency of the vein punctured. All elements of the maximal barrier technique were utilized. FLUOROSCOPY TIME: 0.1 minutes and one image submitted IMPRESSION: Successful PICC line placement under ultrasound and fluoroscopic guidance.
== END ==
LOC: CATHCVL 12:22
PROVIDERS: ATTEND Radiology Diagnostic Radiology
DX: Z45.2 Encounter for adjustment and management of vascular access device (principal); A42.0 Pulmonary actinomycosis; I10 Essential (primary) hypertension; E78.5 Hyperlipidemia, unspecified; E66.9 Obesity, unspecified; Z79.890 Hormone replacement therapy; Z79.82 Long term (current) use of aspirin; Z79.899 Other long term (current) drug therapy; E03.9 Hypothyroidism, unspecified; Z82.49 Family history of ischemic heart disease and other diseases of the circulatory system; Z80.1 Family history of malignant neoplasm of trachea, bronchus and lung; Z68.30 Body mass index [BMI] 30.0-30.9, adult
CPT/HCPCS: 36573; 80051; 82565; 84520; 85025; C1751; C1769; J0696; J2001

== ENCOUNTER → 2020-06-02 | Outpatient (CLI) | payer MEDICARE, BC ==
[2020-06-02 10:39] LABS: African American GFR (CKD) >90 (>60 ml/min/1.73 sqM); Blood Urea Nitrogen 18 mg/dL (7-17); Non-African American GFR(CKD) 79 (>60 ml/min/1.73 sqM)
--- NOTE | 2020-06-02 11:23 | CT ---
EXAMINATION TYPE: CT chest w con DATE OF EXAM: 06/02/2020 COMPARISON: 12/06/2019, 11/25/2019, PET/CT 12/20/2019 HISTORY: lymphnode enlargement, per pt bacterial lung infection CT DLP: 280 mGycm, Automated exposure control for dose reduction was used. CONTRAST: Performed injected with 100 mL of Isovue 300. TECHNIQUE: Axial images were obtained at 5 mm thick sections. Reconstructed images are reviewed on [employer] computer in the coronal plane. FINDINGS: Portion of the thyroid visualized is normal. There is a 0.5 cm nodule within the mid right lung on this may be within the major fissure. This is s table from the 11/25/2019 comparison. Follow-up exam in 6 months. There is a 1.4 cm nodule lingula. This is within measurement error of the comparison studies. Monitor ing however is recommended. No enlarged mediastinal or hilar adenopathy is evident. No enlarged axillary adenopathy is evident. The ascending aorta diameter at the level of the main pulmonary artery is 2.8 cm. The main pulmonar y artery diameter at the bifurcation is 2.[address] sections are obtained through the upper abdomen. Abdomen is essentially unremarkable. IMPRESSIONS: 1. Essentially stable lung nodules the right and left lung discussed above. Continued monitoring is r ecommended with follow-up exam in 6 months.
== END | disposition home or self-care (01) ==
LOC: RADCTMAIN 10:04
PROVIDERS: ATTEND Internal Medicine Sleep Medicine
DX: R91.8 Other nonspecific abnormal finding of lung field (principal)
CPT/HCPCS: 82565; 84520; 71260; 36415; Q9967

== ENCOUNTER → 2020-07-27 | Outpatient (CLI) | payer MEDICARE, BC ==
[2020-07-28 00:39] LABS: African American GFR (CKD) 77.4 (60.0-200.0); BUN/Creat Ratio 31.25 Ratio (12.00-20.00); C Reactive Protein <0.4 mg/dL (0.0-0.8); Calcium 9.4 mg/dL (8.7-10.3); Carbon Dioxide 28.7 mmol/L (21.6-31.8); Chloride 101 mmol/L (96-109); Glucose 125 mg/dL (70-110); Non-African American GFR(CKD) 66.8 (60.0-200.0); Potassium 4.5 mmol/L (3.5-5.5); Sodium 134 mmol/L (135-145)
[2020-07-28 01:57] LABS: Basophils # (A) 0.07 X 10*3/uL (0.00-0.10); Basophils % (A) 0.9 %; Eosinophils # (A) 0.19 X 10*3/uL (0.04-0.35); Eosinophils % (A) 2.5 %; HCT 41.7 % (37.2-46.3); HGB 13.3 g/dL (12.0-15.0); Lymphocytes # (A) 2.87 X 10*3/uL (0.90-5.00); Lymphocytes % (A) 38.5 %; MCHC 31.9 g/dL (32.0-37.0); MCV 94.1 fL (80.0-97.0); Monocytes # (A) 0.77 X 10*3/uL (0.20-1.00); Monocytes % (A) 10.3 %; Neutrophils # (A) 3.55 X 10*3/uL (1.80-7.70); Neutrophils % (A) 47.7 %; Platelet Count 192 X 10*3/uL (140-440); RBC 4.43 X 10*6/uL (4.10-5.20); WBC 7.46 X 10*3/uL (4.50-10.00)
[2020-07-28 05:27] LABS: Erythrocyte Sedimentation Rate 14 mm/Hr (0-30)
== END | disposition home or self-care (01) ==
LOC: LABWHC1 16:14
PROVIDERS: ATTEND Internal Medicine Infectious Disease
DX: A42.9 Actinomycosis, unspecified (principal)
CPT/HCPCS: 36415; 80048; 85025; 85652; 86140

== ENCOUNTER → 2020-12-07 | Outpatient (CLI) | payer MEDICARE, BC ==
--- NOTE | 2020-12-07 13:29 | CT ---
EXAMINATION TYPE: CT chest wo con DATE OF EXAM: 12/07/2020 COMPARISON: 06/02/2020 HISTORY: Follow up solitary pulmonary nodule. CT DLP: 232.3 mGycm. Automated Exposure Control for Dose Reduction was Utilized. TECHNIQUE: CT scan of the thorax is performed without IV contrast. FINDINGS: LUNGS: The lungs are grossly clear, there is no consolidative pneumonia. There is no pleural effusi on or pneumothorax seen. The tracheobronchial tree is patent. Stable 5 mm nodule right midlung adjacent to the major fissure. Stable 1.4 cm nodule lingular segment left upper lobe unchanged from prior exam. MEDIASTINUM: Lack of IV contrast is noted to limit evaluation for mediastinal and especially hilar ad enopathy. There are no definitive greater than 1 cm hilar or mediastinal lymph nodes. No cardiomega ly or pericardial effusion is seen. Coronary artery calcification. Calcification the tracheobronchial tree. OTHER: Degenerative changes of the spine. Atherosclerotic change of the carotid arteries and aorta. S urgical clips are noted in the gallbladder fossa. Vascular calcifications noted. Small hiatal hernia noted. IMPRESSION: 1. Stable pulmonary nodules unchanged from prior exam.
== END | disposition home or self-care (01) ==
LOC: RADCTMAIN 11:39
PROVIDERS: ATTEND Internal Medicine Sleep Medicine
DX: R91.8 Other nonspecific abnormal finding of lung field (principal)
CPT/HCPCS: 71250

== ENCOUNTER → 2021-12-06 | Outpatient (CLI) | payer MEDICARE, BC ==
--- NOTE | 2021-12-06 12:12 | CT ---
EXAMINATION TYPE: CT chest wo con CT DLP: 222.10 mGycm, Automated exposure control for dose reduction was used. DATE OF EXAM: 12/06/2021 12:04 PM COMPARISON:Multiple CTs of the chest with most recent on 12/07/2020 . CLINICAL INDICATION:Female, 86 years old with history of R91.1 Solitary pulmonary nodule; TECHNIQUE: Multiple axial images were obtained through the chest without IV contrast. Lack of IV or o ral contrast limits evaluation of solid and hollow organ viscera. Coronal and sagittal reformats revi ewed. FINDINGS: LUNGS/ PLEURA: No pneumothorax, pleural effusion, focal consolidation. Stable 5 mm pulmonary nodule a djacent to the right major fissure with punctate calcification (series 4, image 31). Stable 12 mm pul monary nodule in the lingular segment (series 4, image 35). No new or enlarging pulmonary nodules. AIRWAY: Patent and unremarkable.. HEART: Size within normal limits. No pericardial effusion. Coronary arterial calcifications. MEDIASTINUM: No gross evidence of adenopathy. VASCULATURE: No aortic aneurysm. Atherosclerotic calcification of the aorta. MUSCULOSKELETAL: No acute osseous abnormalities. Degenerative changes of the spine. SOFT TISSUES/LYMPH NODES: Unremarkable. LOWER NECK: No significant findings. UPPER ABDOMEN: Postcholecystectomy. Small hiatal hernia. IMPRESSION: Stable pulmonary nodules from prior examination. No new or enlarging pulmonary nodules.
== END | disposition home or self-care (01) ==
LOC: RADCTMAIN 11:44
PROVIDERS: ATTEND Internal Medicine Sleep Medicine
DX: R91.8 Other nonspecific abnormal finding of lung field (principal)
CPT/HCPCS: 71250

== ENCOUNTER → 2022-03-29 | Outpatient (CLI) | payer MEDICARE, BC ==
--- NOTE | 2022-03-29 18:17 | BD ---
EXAMINATION TYPE: Axial Bone Density DATE OF EXAM: 03/29/2022 COMPARISON: BASELINE CLINICAL HISTORY: 87 years old Female. ICD-10 CODE: Z78.0 MENOPAUSAL STATE Height: 161 Weight: 62 FRAX RISK QUESTIONS: Family History (Parent hip fracture): NO History of Fracture in Adulthood: NO Secondary Osteoporosis: YES 3. Menopause before 45: YES Rheumatoid Arthritis: NO RISK FACTORS HISTORY OF: Surgery to Spine: YES LUMBAR NO HARDWARE When: 20+ YEARS Family History of Osteoporosis: NO Active: YES Diet low in dairy products/other sources of calcium: NO Postmenopausal woman: YES Lost more than 2 inches in height since high school: NO Frequent falls: NO Poor Health: NO MEDICATIONS: Thyroid Medications: YES Which medication: Synthroid How Lon+YEARS Additional Medications: YES HBP MEDS, THYROID MEDS , VIT D EXAM MEASUREMENTS: Bone mineral densitometry was performed using the [employer] System. Bone mineral density as measured about the Lumbar spine is: ----- L1-L4(G/cm2): 1.236 T Score Values are as follows: ----- L1: -0.7 ----- L2: -0.2 ----- L3: 0.9 ----- L4: 1.5 ----- L1-L4: 0.5 Bone mineral density BASELINE Bone mineral density about the R hip (g/cm2): 0.968 Bone mineral density about the L hip (g/cm2): 0.960 T Score values are as follows: -----R Neck: -0.9 -----L Neck: -1.3 -----R Total: -0.3 -----L Total: -0.4 Bone mineral density BASELINE FRAX%s: The graph provided illustrates a 3.4% chance for a major osteoporotic fx and a 1.0% chance fo r the hips probability for fx in 10 years time. IMPRESSION: Osteopenia (T Score between -2.5 and -1). There is slightly increased risk of fracture and the patient may be considered for treatment. Re-Screen 2-5 years. NOTE: T-SCORE=SD OF THE YOUNG ADULT MEAN.
== END | disposition home or self-care (01) ==
LOC: RADBDWWP 09:57
PROVIDERS: ATTEND Internal Medicine
DX: M85.89 Other specified disorders of bone density and structure, multiple sites (principal); Z78.0 Asymptomatic menopausal state
CPT/HCPCS: 77080

== ENCOUNTER → 2023-06-27 | Outpatient (CLI) | payer MEDICARE, BC ==
--- NOTE | 2023-06-27 21:29 | XR ---
EXAMINATION TYPE: XR knee limited 2 views RT DATE OF EXAM: 06/27/2023 Comparison: None Clinical History: 88-year-old female M25.561 PAIN IN RIGHT KNEE Findings: Some generalized soft tissue swelling, especially anteriorly. At least a moderate underlying joint ef fusion. The patient's right total knee arthroplasty appears well seated without prosthetic fracture. Alignment grossly anatomic. Popliteal artery calcifications. Alignment grossly anatomic. Impression: 1. Some generalized soft tissue swelling, especially anteriorly. 2. Nonspecific, moderate joint effusion. Clinically correlate. 3. The underlying total knee arthroplasty shows no loosening, periprosthetic fracture, or other evide nt complication.
== END | disposition home or self-care (01) ==
LOC: RADXRMAIN 12:05
PROVIDERS: ATTEND Family Medicine
DX: M25.461 Effusion, right knee (principal); M79.89 Other specified soft tissue disorders; Z96.651 Presence of right artificial knee joint

== ENCOUNTER → 2023-11-23 | Outpatient (CLI) | payer MEDICARE, BC ==
--- NOTE | 2023-11-23 12:03 | CA ---
Lexiscan Nuclear Stress Test Report Name: Lyndsey Miller Exam Date: 11/23/2023 10:32 Exam Location: [facility] Stress Ht (in): 52 Wt (lb): 158 BSA: 1.52 Ordering Phys: Zion Fair MD Referring Phys: SATHISH Technologist: ENRRIQUE Age: 88 Gender: F : 1935 Procedure CPT: Indications: I50.33 HEART FAILURE ICD-10 Codes: Patient History: ABHIJIT, palpitations, hypertension and hyperlipidmia. Medications: Meds past 24 hrs: Pretest Chest Pain: STRESS TEST Lexiscan Protocol Exercise Duration (min:sec): 02:[address] Depressions (mm): Angina Score: Thomas Score: Resting HR (bpm): 55 Peak HR (bpm): 75 Resting BP (mmHg): 132 / 67 Peak BP (mmHg): 128 / 62 MPHR: 131 Target HR: 111 % MPHR: 57 METS: 1.0 Total Dose: Peak Dose: Atropine: Double Product: 9600 BP Response: Stress Termination: Infusion comlpete Stress Symptoms: Dyspnea Stress Summary: ECG ANALYSIS Resting ECG: Normal sinus rhythm normal axis normal intervals Stress ECG: Patient was given intravenous Lexiscan as a protocol did not have chest pain or diagnostic ST segment depression CONCLUSIONS Negative stress test by EKG criteria Cardiolite portion of the stress test will be reported separately Dr. Lake Lima MD (Electronically Signed) Final Date: 23 November 2023 12:02
--- NOTE | 2023-11-23 12:08 | NM ---
EXAMINATION TYPE: NM stress lexiscan cardiolite DATE OF EXAM: 11/23/2023 COMPARISON: NONE CLINICAL INDICATION: Female, 88 years old with history of I50.33 HEART FAILURE; TECHNIQUE: After the intravenous administration of 9 mCi Tc 99m Sestamibi - Cardiolite resting SPECT images acquired 80 minutes post injection. The patient received 0.4mg Lexiscan, 25.9 mCi Tc 99m Sestamibi - Stress images obtained [address] injection FINDINGS: Review of stress and rest SPECT images demonstrates stress-induced ischemia involving the cardiac ape x extending to the lateral wall. There is also an area of stress-induced ischemia inferior septal wal l. Gated analysis shows normal wall motion with an estimated left ventricular ejection fraction of 66 %. IMPRESSION: Stress-induced ischemia as noted.
--- NOTE | 2023-11-23 12:16 | CA ---
Transthoracic Echo Report Name: Lyndsey Miller Age: 88 Gender: F : 1935 Exam Date: 11/23/2023 08:47 Exam Location: [facility] Ht (in): 62 Wt (lb): 158 Ordering Physician: Zion Fair MD Attending/Referring Phys: [place]pine Guide Gwendolyn Knapp RDCS Procedure CPT: Indications: I50.33 HEART FAILURE Cardiac Hx: Technical Quality: Good Contrast 1: Total Dose (mL): Contrast 2: Total Dose (mL): MEASUREMENTS (Male / Female) Normal Values 2D ECHO LV Diastolic Diameter PLAX 3.7 cm 4.2 - 5.9 / 3.9 - 5.3 cm LV Systolic Diameter PLAX 2.1 cm IVS Diastolic Thickness 0.9 cm 0.6 - 1.0 / 0.6 - 0.9 cm LVPW Diastolic Thickness 1.1 cm 0.6 - 1.0 / 0.6 - 0.9 cm LV Relative Wall Thickness 0.5 RV Internal Dim ED PLAX 2.9 cm LA Systolic Diameter LX 3.5 cm 3.0 - 4.0 / 2.7 - 3.8 cm LV Diastolic Volume MOD BP 58.8 cm??? 67 - 155 / 56 - 104 cm??? LV Systolic Volume MOD BP 18.9 cm??? 22 - 58 / 19 - 49 cm??? LV Ejection Fraction MOD BP 67.9 % >= 55 % LV Diastolic Volume MOD 4C 69.4 cm??? LV Systolic Volume MOD 4C 17.7 cm??? LV Ejection Fraction MOD 4C 74.4 % LV Diastolic Length 4C 7.3 cm LV Systolic Length 4C 5.3 cm LV Diastolic Volume MOD 2C 45.5 cm??? LV Systolic Volume MOD 2C 20.5 cm??? LV Ejection Fraction MOD 2C 55.0 % LV Diastolic Length 2C 6.6 cm LV Systolic Length 2C 5.3 cm M-MODE Aortic Root Diameter MM 3.2 cm LA Systolic Diameter MM 3.2 cm LA Ao Ratio MM 1.0 AV Cusp Separation MM 1.8 cm DOPPLER AI Peak Velocity 262.3 cm/s AI Peak Gradient 27.5 mmHg AI Pressure Half Time 820.0 ms Mitral E Point Velocity 100.4 cm/s Mitral A Point Velocity 86.9 cm/s Mitral E to A Ratio 1.2 MV Deceleration Time 278.3 ms MV E' Velocity 7.1 cm/s Mitral E to MV E' Ratio 14.2 TR Peak Velocity 260.7 cm/s TR Peak Gradient 27.2 mmHg Right Ventricular Systolic Press 37.5 mmHg FINDINGS Left Ventricle Left ventricular ejection fraction is estimated at 55-60%. Mildly increased posterior wall thickness. No obvious regional wall motion abnormalities. Left ventricular cavity size normal. Right Ventricle Normal right ventricular size and function. Mild pulmonary hypertension. Right Atrium Moderate right atrial dilatation. Left Atrium Mild left atrial dilatation. Mitral Valve Structurally normal mitral valve. Mitral valve thickened. Moderate mitral regurgitation. No mitral stenosis. Aortic Valve Trileaflet aortic valve. Mild aortic regurgitation. No aortic stenosis. Tricuspid Valve Structurally normal tricuspid valve. Moderate tricuspid regurgitation. No tricuspid stenosis. Pulmonic Valve Structurally normal pulmonic valve. Moderate pulmonic regurgitation. Pericardium No pericardial or pleural effusion. Aorta Normal size aortic root and proximal ascending aorta. CONCLUSIONS Normal LV function Moderate mitral regurgitation Moderate tricuspid regurgitation Mild pulmonary hypertension Previewed by: Dr. Lake Lima MD (Electronically Signed) Final Date: 23 November 2023 12:15
== END | disposition home or self-care (01) ==
LOC: RADNMMAIN 08:06
PROVIDERS: ATTEND Family Medicine
DX: I50.33 Acute on chronic diastolic (congestive) heart failure (principal); I08.1 Rheumatic disorders of both mitral and tricuspid valves; I27.20 Pulmonary hypertension, unspecified
CPT/HCPCS: 93017; 93306; 78452; A9500